=== PATIENT | female | born 1965 | race Caucasian/White ===

== ENCOUNTER 2020-12-16 15:27 | Outpatient (REF) | payer BC, SELFPAY ==
--- NOTE | ~2020-12-16 | MM_ITS ---
EXAMINATION: MM SCREENING DIGITAL BREAST TOMOSYNTHESIS, BILATERAL CLINICAL INFORMATION: Screening. Asymptomatic. The lifetime risk of breast cancer based on the Tyrer-Cuzick Model is 16%. COMPARISON: Mammography: 12/24/2019, 12/11/2019, 12/07/2018, 10/26/2013 TECHNIQUE: Digital breast tomosynthesis is performed in both the craniocaudal and mediolateral oblique views along with computer-aided detection (CAD). Synthesized 2D images are generated from the tomosynthesis. FINDINGS: There are scattered areas of fibroglandular density (ACR BI-RADS breast composition Category b). There are no significant masses, abnormal calcifications, or other abnormalities. There is no developing density. The axilla and skin contours are unremarkable. MM/MM tomosynthesis screening BI IMPRESSION: No mammographic evidence of malignancy. ASSESSMENT: BI-RADS 1: Negative RECOMMENDATION: Routine annual mammography screening. This patient's information was entered into a reminder system with a target due date for their next mammogram.
== END 2020-12-16 15:28 | disposition home or self-care (01) ==
LOC: HO.MAMMO 15:27
PROVIDERS: Visit Provider Obstetrics & Gynecology
DX: Z12.31 Encounter for screening mammogram for malignant neoplasm of breast (principal)
CPT/HCPCS: 77063; 77067

== ENCOUNTER 2021-10-02 07:49 | Outpatient (REF) | payer BC, SELFPAY ==
[2021-10-02 11:26] LABS: MANUAL DIFF FLAG NO
[2021-10-02 11:44] LABS: Basophils Percent Auto 0.7 % (0-2); Eosinophils Absolute Auto 0.1 X10*3/uL (0.0-0.4); Eosinophils Percent Auto 4.3 % (0-4); Hematocrit 40.5 % (37.0-47.0); Hemoglobin 13.4 g/dl (12.0-16.0); Imm Gran Abs Auto 0.03 X10*3/uL (0.00-0.03); Lymphocytes Absolute Auto 0.8 X10*3/uL (1.2-4.9); Lymphocytes Percent Auto 26.6 % (20-40); Mean Corpuscular HGB Conc 33.1 g/dl (31.0-35.0); Mean Corpuscular Hemoglobin 28.5 pg (27.0-33.0); Mean Corpuscular Volume 86.2 fL (80.0-98.0); Mean Platelet Volume 10.7 fL (9.4-12.3); Monocytes Absolute Auto 0.4 X10*3/uL (0.1-1.2); Monocytes Percent Auto 13.5 % (2-11); Neutrophils Absolute Auto 1.6 x10*3/uL (2.0-8.3); Neutrophils Percent Auto 53.9 % (45-73); Platelet Count 143 X10*3/uL (160-400); Red Cell Distribution Width 12.7 % (11.0-16.0)
[2021-10-02 12:05] LABS: Alanine Aminotransferase 34 U/L (0-31); Albumin Level 4.3 g/dL (3.5-5.0); Alkaline Phosphatase 86 U/L (39-117); Anion Gap 13 (12-20); Aspartate Amino Transferase 25 U/L (5-31); Bilirubin Total 0.8 mg/dL (0.0-1.0); Blood Urea Nitrogen 16 mg/dL (9-16); Carbon Dioxide 27 mmol/L (22-29); Chloride 105 mmol/L (96-108); Cholesterol 182 mg/dL; Estimated Glomerular Filt Rate > 60; Glucose Fasting 110 mg/dL (60-99); HDL Cholesterol 44 mg/dL; LDL Cholesterol Calculated 105 mg/dl; Potassium 4.2 mmol/L (3.3-5.1); Sodium 141 mmol/L (135-145); Total Protein 7.1 g/dL (6.5-8.0); Triglycerides 165 mg/dL
[2021-10-02 12:07] LABS: Thyroid Stimulating Hormone 1.43 uIU/mL (0.32-4.0); Vitamin D 25-OH Total 25.5 ng/mL (>30)
== END 2021-10-02 07:50 | disposition home or self-care (01) ==
LOC: HO.HMGCLDS 07:49
PROVIDERS: PCP Internal Medicine; Visit Provider Internal Medicine
DX: Z00.00 Encounter for general adult medical examination without abnormal findings (principal)
CPT/HCPCS: 36415; 80053; 80061; 82306; 84443; 85025

== ENCOUNTER 2022-07-05 15:56 | Outpatient (REF) | payer BC, SELFPAY ==
--- NOTE | ~2022-07-05 | MM_ITS ---
EXAMINATION: MM SCREENING DIGITAL BREAST TOMOSYNTHESIS, BILATERAL CLINICAL INFORMATION: Screening. Asymptomatic. The lifetime risk of breast cancer based on the Tyrer-Cuzick Model is 16%. COMPARISON: Multiple prior mammography, most recent 12/16/2020. TECHNIQUE: Digital breast tomosynthesis is performed in both the craniocaudal and mediolateral oblique views along with computer-aided detection (CAD). Synthesized 2D images are generated from the tomosynthesis. Additional left MLO view is provided. FINDINGS: There are scattered areas of fibroglandular density (ACR BI-RADS breast composition Category b). There are no significant masses, abnormal calcifications, or other abnormalities. Parenchymal pattern is similar to prior studies. There is no developing density or architectural abnormality. The axilla and skin contours are unremarkable. No significant changes. MM/MM tomosynthesis screening BI IMPRESSION: No mammographic evidence of malignancy. ASSESSMENT: BI-RADS 1: Negative RECOMMENDATION: Routine annual mammography screening. This patient's information was entered into a reminder system with a target due date for their next mammogram.
== END 2022-07-05 15:57 | disposition home or self-care (01) ==
LOC: HO.MAMMO 15:56
PROVIDERS: PCP Internal Medicine; Visit Provider Obstetrics & Gynecology
DX: Z12.31 Encounter for screening mammogram for malignant neoplasm of breast (principal)
CPT/HCPCS: 77063; 77067

== ENCOUNTER 2023-03-29 08:51 | Day surgery (SDC) | payer BC, SELFPAY ==
[2023-03-23 13:30] VITALS: BMI 42.2
--- NOTE | 2023-03-28 08:34 | HO.ANESPROP2 ---
Documented by User: Glory Milan NP 03/28/23 08:34 HPI - Anesthesia Eval Consult details Narrative: 58yo F for Colonoscopy [facility] Past Medical History Medical History Depression Anxiety HTN (hypertension) Surgical History Surgical History Hx of section Social History Patient Tobacco Use Status: Former Tobacco user Quit Date: 1989 Meds Allergies Allergy/AdvReac Type Severity Reaction Status Date / Time No Known Allergies Allergy Unverified 01/17/20 16:23 Home Medications Medication Instructions Recorded Confirmed Last Taken Type lisinopril 10 1 tab PO DAILY 03/23/23 03/23/23 Unknown History mg-hydrochlorothiazide 12.5 mg tablet sertraline 50 mg tablet 50 mg PO DAILY 03/23/23 03/23/23 Unknown History Exam Height,Weight and Vital Signs: Height 5 ft 3 in Weight 107.955 kg Assessment and Plan Assessment Anesthesia Assessment: Chart Reviewed Documented by User: Abi Garrido MD 03/29/23 09:58 [facility] Past Medical History Medical History Depression Anxiety HTN (hypertension) Surgical History Surgical History Hx of section History of Problems with Anesthesia: No Social History Patient Tobacco Use Status: Former Tobacco user Quit Date: 1989 Meds Allergies Allergy/AdvReac Type Severity Reaction Status Date / Time No Known Allergies Allergy Unverified 01/17/20 16:23 Home Medications Medication Instructions Recorded Confirmed Last Taken Type lisinopril 10 1 tab PO DAILY 03/23/23 03/23/23 Unknown History mg-hydrochlorothiazide 12.5 mg tablet sertraline 50 mg tablet 50 mg PO DAILY 03/23/23 03/23/23 Unknown History Exam Airway Mallampati Class: II TM Dist: >3cm Neck ROM: Full Loose/Missing/Broken Teeth: No Heart: RRR Lungs: CTA Assessment and Plan Assessment Anesthesia Assessment: Anesthesia Plan Discussed Final Anesthetic Review History of Problems with Anesthesia: No NPO: Yes ASA Class: III Final Preanesthetic Review: Meds/Allgs Chart Reviewed, Consent Obtained/Reviewed and Anes Risks/Benef Reviewed Patient Risk: Intermediate Procedure Risk: Low Anesthetic Plan Anesthetic Plan: MAC: Disposition: Standard PACU
[2023-03-29 09:28] VITALS: BMI 39.3
[2023-03-29 09:40] VITALS: BMI 39.3
[2023-03-29 09:41] VITALS: BP 152/90; PULSE 76; RESP 16; TEMP 37.1; O2SAT 94
[2023-03-29] MEDS: Lactated Ringers 1,000 ML 100 ML IVCONT (09:53)
--- NOTE | 2023-03-29 09:59 | P.HPSUR_ITS ---
Pre-Procedural Eval Section A Date of Service: 03/29/23 Section B Chief Complaint: Encounter for screening for malignant neoplasm of Details of Present Illness: see H&P no changes Relevant Family History (Specify if Yes): No Relevant Social History: None Present Medications: see Short Stay Collaborative assessment Medical History: No relevant PMH History of Previous Operations: No relevant previous surgery Allergies: Allergies Allergy/AdvReac Type Severity Reaction Status Date / Time No Known Allergies Allergy Unverified 01/17/20 16:23 Review of Systems Sugical H&P ROS: Negative: Constitution, Cardiovascular, Respiratory, Neuro logical, Psychiatric, Hem-Onc, Allergic/Immunologic, Gastrointestinal, Genitourinary, Musculoskeletal, Integumentary, Endocrine and Eyes/Ears/Nose/Throat Exam Surgical H&P Exam: Normal: HEENT, Normal: Heart, Normal: Lungs, Normal: Extremities, Normal: Abdomen, Normal: Skin and Normal: Neurological Plan Diagnosis/Plan: Unchanged I have reviewed the history and physical and performed a pertinent physical examination on my patient. No changes have occurred unless specified. Time Spent With Patient Time: Total time managing care of this patient today ____ minutes.
--- NOTE | 2023-03-29 10:28 | P.BOP_ITS ---
Brief Operative Note Date of Service: 03/29/23 Pre-op diagnosis: screening Post-op diagnosis: same Procedure: colonoscopy Surgeon: Drew Villatoro MD Anesthesia: MAC Was an Photo Print Specialist used for this Procedure?: No Estimated blood loss (mL): 2 Pathology: other Condition: stable Disposition: PACU
[2023-03-29 10:30] VITALS: BP 100/56; PULSE 71; RESP 16; TEMP 37; O2SAT 96
[2023-03-29 10:45] VITALS: BP 112/62; PULSE 72; RESP 16; O2SAT 96
--- NOTE | 2023-03-29 12:06 | OP_ITS ---
DATE OF SERVICE: 03/29/2023 SURGEON: Drew Villatoro MD INDICATIONS: Colon cancer screening. PREOPERATIVE DIAGNOSIS: POSTOPERATIVE DIAGNOSIS: PROCEDURE PERFORMED: Colonoscopy to the cecum with biopsy. ESTIMATED BLOOD LOSS: COMPLICATIONS: ANESTHESIA: Monitored anesthesia care. ASSISTANTS: SPECIMENS: DESCRIPTION OF PROCEDURE: A history and physical was performed. The risks and benefits of the procedure were explained to the patient. Informed consent was obtained. The patient was placed in the left lateral decubitus position. A digital rectal exam was performed and was found to be normal. The Olympus pediatric video colonoscope was introduced into the rectum and advanced to the cecum. The cecum was identified by transillumination, palpation, and identification of ileocecal valve. Examination was performed, and the scope was removed. She tolerated the procedure well and was returned to the recovery area in stable condition. FINDINGS: The terminal ileum was not examined. The visualized colonic mucosa was normal. The quality of the prep was good. There was a single polyp measuring less than 5 mm in the cecum near the appendiceal orifice, which was removed with biopsy forceps. No other polyps were identified. There was mild sigmoid diverticulosis. Retroflexed examination showed small internal hemorrhoids. IMPRESSION: Colon polyp. RECOMMENDATION: Follow up the biopsy results. MD ALFREDO Caba/VIRGILIOL / [id number]
== END 2023-03-29 11:21 | disposition home or self-care (01) ==
PROVIDERS: PCP Internal Medicine; Visit Provider Internal Medicine Gastroenterology
PROC: 0DJD8ZZ Inspection of Lower Intestinal Tract, Via Natural or Artificial Opening Endoscopic (ICD-10-PCS; CPT 45378; principal; 2023-03-29 10:20)
DX: Z12.11 Encounter for screening for malignant neoplasm of colon (principal); D12.0 Benign neoplasm of cecum; K57.30 Diverticulosis of large intestine without perforation or abscess without bleeding; K64.8 Other hemorrhoids; I10 Essential (primary) hypertension; F32.A Depression, unspecified; F51.9 Sleep disorder not due to a substance or known physiological condition, unspecified; Z79.899 Other long term (current) drug therapy
CPT/HCPCS: 45380; 88305; J2704

== ENCOUNTER 2023-07-11 15:35 | Outpatient (REF) | payer BC, SELFPAY | END 2023-07-11 15:36 | disposition home or self-care (01) | LOC: HO.MAMMO 15:35 | PROVIDERS: PCP Internal Medicine; Visit Provider Internal Medicine | DX: Z12.31 Encounter for screening mammogram for malignant neoplasm of breast (principal) | CPT/HCPCS: 77063; 77067 ==

== ENCOUNTER → 2023-07-11 16:00 | Outpatient (BNV) | payer BC, SELFPAY | PROVIDERS: PCP Internal Medicine; Visit Provider Radiology Diagnostic Radiology | DX: Z12.31 Encounter for screening mammogram for malignant neoplasm of breast (principal) | CPT/HCPCS: 77063; 77067 ==

== ENCOUNTER 2024-06-15 07:50 | Outpatient (REF) | payer BC, SELFPAY ==
--- OUTSIDE RECORDS SUMMARY | 2024-06-15 07:54 | XMS_ITS ---
Author Organization [facility] Address [address] [place] [id number] Care Team Providers Care Regulatory Process Manager Name Role Phone Phil Paulino MD Primary Care Provider UnavailDrew Reagan Jr REASON FOR VISIT pathology Encounters Encounter Location Date Provider Diagnosis [facility] [address] [place] [address] 04/07/2023 Drew Villatoro Jr PLAN OF TREATMENT No Information
--- OUTSIDE RECORDS SUMMARY | 2024-06-15 07:54 | XMS_ITS ---
Author Organization [facility] Address [address] [place] [address] Care Team Providers Care Forging Engineer Name Role Phone Phil Paulino MD Primary Care Provider Sendy Stone Unavailable [phone] Allergies No Known Allergies REASON FOR VISIT PCP: 06/2022, Ingrown nail, Skin problem(s) Medications Medication SIG (Take, Route, Frequency, Duration) Notes Start Date End Date Status Lisinopril 10 MG 1 tablet Orally Once a day for 30 day(s) Active Citalopram Hydrobromide 40 MG 0.5 tablet Orally Once a day for 30 day(s) Not-Taking Cephalexin 500 MG 1 capsule Orally david ry 12 hrs for 5 days Active Cephalexin 500 MG 1 capsule Orally david ry 12 hrs for 5 day(s) Not-Taking Zoloft Active Social History Tobacco Use: Social History Observation Description Date Details (start date - stop date) Former Smoker NA - 05/02/1990 Tobacco Use/Smoking Question Answer Notes Are you a: former smoker When did you stop smoking? 05/02/1990 Additional Findings: Tobacco Non-User Cu rrent non-smoker,Ex-heavy cigarette smoker (20-30/day) Alcohol Screen Question Answer Notes Did you have a drink contain ing alcohol in the past year? Yes How often did you have a dri nk containing alcohol in the past year? 2 to 3 times a week (3 points) How many drinks did you have on a typical day when you were drinking in the past year? 1 or 2 drinks (0 point) How often did you have 6 or more drinks on one occasion in the past year? Never (0 point) Points 3 Interpretation Positive Tobacco use other than smoking: Question Answer Notes Are you an other tobacco user? No Vital Signs Height 5ft 3in in 02/24/2023 Weight 200 lbs 02/24/2023 BMI 35.42 kg/m2 02/24/2023 Encounters Encounter Location Date Provider Diagnosis [facility] [address] [place] [address] 02/24/2023 Sendy Roper Ingrown nail L60.0 and Cellulitis of toe of right foot L03.031 Assessments Encounter Date Diagnosis (ICD Code) Assessment Notes Treatment Notes Treatment Clinical Notes Section Notes 02/24/2023 Ingrown nail (ICD-10 - L60.0) 02/24/2023 Cellulitis of toe of right foot (ICD-10 - L03.031) Plan Of Treatment Medication Medication Name Sig Start Date Stop Date Notes Cephalexin 500 MG 1 capsule Orally every 12 hrs for 5 days Next Appt Details Follow Up: 2-4 Weeks, Reason : Procedure Notes * Category Sub-Category Detail Notes Matricectomy (OP NOTE) Consent The patie nt was brought to the examination room and placed on the table in a supine position. The pre/marii/postoperative course, risks, complications and alternatives were discussed, understood and accepted by the patient. No guarantees were given regarding the surgical outcome Procedure A digital prep with alcohol or betadine was performed. 3cc of 1 percent Xylocaine Plain local anesthetic was administered to the toe via digital block utilizing aseptic technique. A digital touriquet was applied. The affected toenail portion was undermined, incised and resected to the eponychium and matrix. It was noted to be significantly incurvated and hypertrophied. The nailbed and matrix were curetted and the nail groove, bed and matrix were cauterized with Phenol, 3 applications of 30 seconds each from a cotton tip applicator, no underling bone was identified. Wound cleansed with alcohol. , The surrounding skin was protected from the Phenol with Bacitracin ointment. The tourniquet was released and capillary fill time was intact to the digit. A sterile Bacitracin dressing was applied Disposition Disposition: The pat ient tolerated the procedure and anesthesia well and left in good condition, alert, oriented and stable in no acute distress. Local wound care instructions were discussed and dispensed. There were no complications and the prognosis is favorable, Recommended alternating/staggering Tylenol XS 2 tabs and Motrin 600mg q 6 hrs ea for discomfort, Rx narcotic postop pain meds were deferred Location Lateral nail border, T5 Progress Notes * Myriam AGDOB:1964 (57 yo F)Acc No.[id number]:02/24/2023 Progress Note Patient:?Myriam Ag Provider:?Sendy Roper DPM :1965???Age:57 Y???Sex:Female D ate:02/24/2023 Address:[address] [place] [address], [facility] Pcp:Phil Paulino MD Subjective: * Chief Complaints: * ???PCP: 06/2022Nilsa Quiroga in problem(s) * HPI: ???Possible Infection:?Nature:?aching, swelling, throbbing, redness.?Location:?Great toe Right foot.?Course:?worse.?Aggrevated by:?any pressure.? * ROS:?General/Constitutional:?Nausea?denies.?Vomiting?denies.?Hunger Thirst?denies.?Loss appetite?denies.?Chills?denies.?Fatigue?denies.?Fever?denies.?Night Sweats?denies.?Unexplained weight loss?denies.?Unexplained weight gain?denies.?HEENTM:?Dentures?denies.?Dizziness?denies.?Glasses/contacts?admits.?Retinopathy?de nies.?Blurred/double vision?denies.?TMJ?denies.?Discharge/drainage?denies.?Implants?denies.?Sore throat?denies.?Dental implants?denies.?Hard of hearing ?admits.?Difficulty chewing/swallowing/speaking?denies.?Nose bleeds?denies.?Sore mouth?denies.?Respiratory:?On Oxygen?denies.?Pneumonia/pleurisy?denies.?Bronchitis?denies.?Emphysema?denies.?C oughing?denies.?Cough blood?denies.?Shortness of breath?denies.?Wheezing?admits.?Cardiovascular:?Pacemaker?denies.?MVP?denies.?WPW?denies.?CHF?denies.?Heart attack?denies.?Septal defect?admits.?Rapid beat?denies.?Chest pain ?denies.?Atrial Fib.?denies.?Murmur/Palpitations?denies.?Gastrointestinal:?Hemorrhoids?denies.?Stomach/Abdominal pain?denies.?Dark blood stool?denies.?Irritable bowel ?denies.?Constipation?denies.?Diarrhea?denies.?Hematology:?Swelling?denies.?Clots?denies.?Varicose Veins?denies.?Bruising?denies.?Bleeding problem?denies.?Genitourinary:?Blood urine?denies.?Frequent/Painfu/urination/bladder control?denies.?Kidney stones?denies.?Infection (UTI)?denies.?Nephropathy?denies.?sex trans dis (STD)?denies.?Prostate?denies.?Musculoskeletal:?Hammertoes?denies.?Bunions?denies.?Back Pain?denies.?Muscle Cramps/ Resting?denies.?Muscle cramps / walking?denies.?Generalized aches and pains?denies.?Weakness?denies.?Integ.:?Gonzáles?denies.?Scars?denies.?Corns/calluses?denies.?Ingrown nails?admits.?Painful nails?denies.?Open Sores?denies.?Rashes?denies.?Neurologic:?Difficulty sleeping?denies.?Brain disorder?denies.?Numbness?denies.?Balance trouble?denies.?Confusion?denies.?Fainting/blackouts?denies.?Tingling?denies.?Tr emors?denies.? * Medical History:? * Surgical History:? * Hospitalization/Major Diagno stic Procedure:?No Hospitalization History. * Family History:?Mother: dece ased.?Father: .? * Social History:?Tobacco Use:?Tobacco Use/Smoking?Are you a:?former smoker ?When did you stop smoking??05/02/1990 ?Additional Findings: Tobacco Non-User?Current non-smoker,Ex-heavy cigarette smoker (20-30/day) ?Tobacco use other than smoking?Are you an other tobacco user??No ???Drugs/Alcohol:?Drugs?Have you used drugs other than those for medical reasons in the past 12 months??No ?Alcohol Screen?Did you have a drink containing alcohol in the past year??Yes ?How often did you have a drink containing alcohol in the past year??2 to 3 times a week (3 points) ?How many drinks did you have on a typical day when you were drinking in the past year??1 or 2 drinks (0 point) ?How often did you have 6 or more drinks on one occasion in the past year??Never (0 point) ?Points?3 ?Interpretation?Positive ???Miscellaneous:?Caffeine: yes, frequency:, 1-2 cups per day. ?Children: yes. ?Exercise: yes, hiking, yoga. ?Marital status: . ?Occupation: [employer] * Medications:?TakingZoloft Li sinopril 10 MG Tablet 1 tablet Orally Once a dayTaking Zoloft Taking Lisinopril 10 MG Tablet 1 tablet Orally Once a dayNot-Taking/PRNCitalopram Hydrobromide 40 MG Tablet 0.5 tablet Orally Once a dayCephalexin 500 MG Capsule 1 capsule Orally every 12 hrsMedication List reviewed and reconciled with the patientNot-Taking/PRN Citalopram Hydrobromide 40 MG Tablet 0.5 tablet Orally Once a dayNot-Taking/PRN Cephalexin 500 MG Capsule 1 capsule Orally every 12 hrsMedication List reviewed and reconciled with the patient * Allergies:?N.K.D.A.yes[Aller gies Verified] Objective: * Vitals:?Ht: 5ft 3in, Wt:200, BMI:35.42, Shoe size: 9W, Ht-cm: 160.02 cm, Wt-k.72 kg. * Examination: ???Ingrown Nail: ?INSPECTION:?Reveals incurvation, pain on palpation, groove hypertrophy, Lateral nail border, There is evidence of surrounding periungual tissue erythema , Lateral nail border, T5.?Dermatologic: ?SKIN FINDINGS:?Skin shows sign(s) of, localized cellulitis without lymphangitis extending proximally to the level of the MPJ, T5.? Assessment: * Assessment: 1.?Ingrown nail - L60.0 (Lori diamond)?2.?Cellulitis of toe of right foot - L03.031, Acute problem, Stable (1=3)? Plan: * Treatment: * Procedures:?Matricectomy (OP NOTE):?Location?Lateral nail border, T5.?Consent?The patient was brought to the examination room and placed on the table in a supine position. The pre/marii/postoperative course, risks, complications and alternatives were discussed, understood and accepted by the patient. No guarantees were given regarding the surgical outcome.?Procedure?A digital prep with alcohol or betadine was performed. 3cc of 1 percent Xylocaine Plain local anesthetic was administered to the toe via digital block utilizing aseptic technique. A digital touriquet was applied. The affected toenail portion was undermined, incised and resected to the eponychium and matrix. It was noted to be significantly incurvated and hypertrophied. The nailbed and matrix were curetted and the nail groove, bed and matrix were cauterized with Phenol, 3 applications of 30 seconds each from a cotton tip applicator, no underling bone was identified. Wound cleansed with alcohol. , The surrounding skin was protected from the Phenol with Bacitracin ointment. The tourniquet was released and capillary fill time was intact to the digit. A sterile Bacitracin dressing was applied .?Disposition?Disposition: The patient tolerated the procedure and anesthesia well and left in good condition, alert, oriented and stable in no acute distress. Local wound care instructions were discussed and dispensed. There were no complications and the prognosis is favorable, Recommended alternating/staggering Tylenol XS 2 tabs and Motrin 600mg q 6 hrs ea for discomfort, Rx narcotic postop pain meds were deferred.? * Procedure Codes:?84123 REMOV AL OF NAIL BED * Preventive Medicine:? ??Counseling:?Discussion:?-13: Office or other outpatient visit for the evaluation and management of an established patient, which required a medically appropriate history and/or examination and LOW level of DECISION MAKING for: 1 STABLE ACUTE UNCOMPLICATED PROBLEM, 2 OR MORE MINOR PROBLEMS, OR 1 STABLE CHRONIC PROBLEM, THAT POSE(S) A LOW RISK FOR MORBIDITY/MORTALITY. The visit on the day of the encounter encompassed interpreting the data and educating the patient as to the nature of their condition, treatment options available according to their individual PMH, meds, allergies, and overall health/living conditions, as well as any potential risks or complications that may occur from a failure to adhere to, and participate in, the recommended course of therapy. The discussion included a complete verbal, and/or written explanation of the examination results, any x-rays taken, the proposed diagnosis, and outline of the treatment plan. A schedule for future care needs was also explained. The patient verbalized an understanding of the instructions at this time and agreed to be an active participant in their treatment. If the patient should think of any questions or concerns after the visit, I have encouraged the patient to call the office.?Abscess/Paraonychia/Ingrown Nails:?We discussed the possible etiologies (genetic, improper nailcare, shoegear, nail trauma) which may lead to ingrown nails and/or paronychial infections. We discussed and reviewed palliative/nonsurgical/deferring definitive treatment (vs) undergoing the treatment procedures of nail avulsion(s) or PNA, which may prevent recurrence and give more lasting results. The possible risks/complications such as worsened condition/delayed healing/nonhealing/failure/recurrence/infection, the potential benefits/advantages of decreased pain/deformity, as well as alterative treatment options including applying nail softening agents/nailgroove packing were discussed. No guarantees were given regarding any outcome for any procedure. The patient was educated in the length of time for the affected nail to regrow once completely healed from a nail avulsion procedure. Once the condition has completely healed, the patient was consulted on proper nailcare. Patient questions such as details of each procedure, varying time to heal, activity post procedure, and shoegear were discussed and the answers were verbally confirmed fully understood.?Cellulitis/Lymphangitis?The Pt. was counseled on the diagnosis, etiology, treatment options, and importance for adherence to recommendations regarding the treatment for Cellulitis. Abx were Rxed to address the cellulitis. The advantages and disadvantages of an antibiotic medication, along with its side effects, were discussed with the patient to their comprehended satisfaction. Patient questions re: use, dosage, and possible pharmacutical interactions were reviewed and the answers clearly understood. If the condition should worsen while taking the antibiotics as directed, it was recommeded that the patient call the office immediately or seek emergency medical care. The patient verbally confirmed a full understanding of the above information.? * Follow Up:?2-4 Weeks * Images: * Sign off status: Completed true * Provider:?Sendy Roper DPM Date:? Generated for Nain robles/Elissa/Nimesh on:?06/15/2024 07:54 AM EST History and Physical Notes * HPI (History of Present Illness) Category Sub-Category Detail Notes Category Not es Possible Infection Location: Great toe Right foot Nature: aching, swelling, th robbing, redness Course: worse Aggravated by: any pressure Examination Category Sub-Category Detail Notes Category Not es Ingrown Nail INSPECTION: Reveals incurvat ion, pain on palpation, groove hypertrophy, Lateral nail border, There is evidence of surrounding periungual tissue erythema , Lateral nail border, T5 Dermatologic SKIN FINDINGS: Skin shows sign( s) of, localized cellulitis without lymphangitis extending proximally to the level of the MPJ, T5
--- OUTSIDE RECORDS SUMMARY | 2024-06-15 07:54 | XMS_ITS | Patient Health Record ---
Author Organization [facility] Address [address] [place] [address] Care Team Providers Care Oil Change Technician Name Role Phone Phil Paulino MD Primary Care Provider Drew Bravo Jr Unavailable ALLERGIES No Known Allergies REASON FOR REFERRAL No Information MEDICATIONS Medication SIG (Take, Route, Frequency, Duration) Notes Start Date End Date Status MiraLax (colon prep) 17 GM/SCOOP mixed with Gatorade or Crystal Light Orally begin at 5:00 p.m. the day before the procedure for 1 day 02/17/2023 Active Zoloft 50 MG 1 tablet Orally Once a day for 30 day(s) Active Lisinopril-hydroCHLOROthia zide 10-12.5 MG TAKE 1 TABLET BY MOUTH EVERY DAY Oral for 90 Active Vitamin D Active SOCIAL HISTORY Tobacco Use: Social History Observation Description Date Details (start date - stop date) Never Smoker NA - NA Sex Assigned At : Social History Observation Description Sex Assigned At Unknown Tobacco Use/Smoking Question Answer Notes Patient is a nonsmoker Alcohol Screen Question Answer Notes Did you have a drink contain ing alcohol in the past year? Yes How often did you have a dri nk containing alcohol in the past year? Monthly or less (1 point) How many drinks did you have on a typical day when you were drinking in the past year? 1 or 2 drinks (0 point) How often did you have 6 or more drinks on one occasion in the past year? Never (0 point) Points 1 Interpretation Negative PROBLEMS Problem Type ICD Code Onset Dates Problem Status W/U Status Risk SNOMED Code Notes Problem Colon cancer screening (Z12.11) Active confirmed 223156136 Problem Encounter for other preprocedural examination (Z01.818) Active confirmed 913201742 PLAN OF TREATMENT Future Test Test Name Order Date COLONOSCOPY 02/17/2023 Insurance Providers Payer Name Payer Address Payer Phone Subscriber Number Group Number Insured Name Patient Relationship to Insured Coverage Start Date Coverage End Date [facility] [address] [place] [address] [phone] [id number] KIM JACOB Self - patient is the insured MEDICAL (GENERAL) HISTORY Medical History History ICD Code Hypertension Anxiety/depression Surgical History Surgery Date(Month/Year) section 1997
--- OUTSIDE RECORDS SUMMARY | 2024-06-15 07:54 | XMS_ITS | Patient Health Record ---
Author Organization [facility] Address [address] [facility] [place] [address] Care Team Providers Care Qa Engineer Name Role Phone Phil Paulino MD Primary Care Provider Sendy Stone Unavailable [phone] Allergies No Known Allergies Reason For Referral No Information Medications Medication SIG (Take, Route, Frequency, Duration) Notes Start Date End Date Status Cephalexin 500 MG 1 capsule Orally david ry 12 hrs for 5 day(s) Not-Taking Cephalexin 500 MG 1 capsule Orally david ry 12 hrs for 5 days Not-Taking Citalopram Hydrobromide 40 MG 0.5 tablet Orally Once a day for 30 day(s) Not-Taking Zoloft Active Lisinopril 10 MG 1 tablet Orally Once a day for 30 day(s) Active Social History Tobacco Use: Social History [...] Are you an other tobacco user? No Plan Of Treatment No Information Insurance Providers Payer Name Payer Address Payer Phone Subscriber Number Group Number Insured Name Patient Relationship to Insured Coverage Start Date Coverage End Date [facility] [id number] [place] [address] [id number] Myriam Currie i Self - patient is the insured Medical (General) History Medical History History ICD Code Anxiety Depression Chicken pox Surgical History Surgery Date(Month/Year)
--- OUTSIDE RECORDS SUMMARY | 2024-06-15 07:55 | XMS_ITS ---
Author Organization [facility] Address [address] [place] [address] Care Team Providers Care Head Of Physics Name Role Phone Phil Paulino MD Primary Care Provider Drew Bravo Jr [phone] REASON FOR VISIT screening Encounters Encounter Location Date Provider Diagnosis [facility] Out[facility] [address] [place] [phone] 03/29/2023 Drew Villatoro Jr Encounter for screening colonoscopy Z12.11 and Colon polyps K63.5 ASSESSMENTS Encounter Date Diagnosis Assessment Notes Treatment Notes Treatment Clinical Notes 03/29/2023 Encounter for screening colonoscopy (ICD-10 - Z12.11) 03/29/2023 Colon polyps (ICD-10 - K63.5) PLAN OF TREATMENT No Information
--- OUTSIDE RECORDS SUMMARY | 2024-06-15 07:55 | XMS_ITS ---
Author Organization [facility] Address [address] [facility] [place] [address] Care Team Providers Care Bacteriologist Food Name Role Phone Phil Paulino MD Primary Care Provider Sendy Stone Unavailable [phone] Allergies No Known Allergies REASON FOR VISIT pt states last pcp visit 06/2022, Open sore - Toe Medications Medication SIG (Take, Route, Frequency, Duration) [...] No Vital Signs Height 5ft 3in in 03/21/2023 Weight 200 lbs 03/21/2023 BMI 35.42 kg/m2 03/21/2023 Encounters Encounter Location Date Provider Diagnosis [facility] [address] [address] 03/21/2023 Sendy Perica Skin ulcer of toe of right foot with fat layer exposed L97.512 and Cellulitis of right toe L03.031 Assessments Encounter Date Diagnosis (ICD Code) Assessment Notes Treatment Notes Treatment Clinical Notes Section Notes 03/21/2023 Skin ulcer of toe of right foot with fat layer exposed (ICD-10 - L97.512) Patient Educated with: WOUND CARE INSTRUCTIONS.p df (WOUND CARE INSTRUCTIONS.p df) 03/21/2023 Cellulitis of right toe (ICD-10 - L03.031) 03/21/2023 Other Plan Of Treatment Treatment Notes Assessment Notes Skin ulcer of toe of right f oot with fat layer exposed Patient Educated with: WOUND CARE INSTRUCTIONS.pdf (WOUND CARE INSTRUCTIONS.pdf) Next Appt Details Follow Up: prn, Reason: Procedure Notes * Category Sub-Category Detail Notes Debride skin and subQ Open wound Physician of record performed open wound selective debridement of devitalized necrotic/nonviable soft tissue, fibrin, exudate, epidermis, dermis, thru skin and subcutaneous fat tissue, first 20 sq cm or less, using sharp dissection with sterile 15 blade, and/or tissue nippers. ANESTHESIA- was DEFERRED, Pt tolerate to pain, Sterile antibiotic dressing applied. Hemostasis was controlled through direct pressure. Post debridement measurements: 4 mm x 2 mm x 3 mm. Character of the wound post debriement is stable (35495) , The patient was instructed on importance of proper wound care consisting of pressure reduction, maintainance of moist wound environment, and regular debridement of devitilized tissue , The patient is to cleanse the wound with warm soapy water/peroxide/saline or betadine BID based on product availability , The patient is to apply Antibiotic Oint. to the wound and cover with a DSD , The patient was instructed to change dressings according to orders or PRN saturation, leaks , The patient was instructed to monitor and report any signs or symptoms of infection or any untoward reactions , The patient is to cont the local wound care as directed Progress Notes * Myriam AG JDOB:1964 (58 yo F)Acc No.[id number]:03/21/2023 Progress Notes Patient:Myriam Bishop Provider:?Sendy Roper DPM :1965???Age:58 Y???Sex:Female D ate:03/21/2023 Address:[address] [place], [place] [id number] Pcp:Phil Paulino MD Subjective: * Chief Complaints: * ???Pt states last pcp visit 06/2022Open sore - Toe * HPI: ???Possible Infection:?Nature:?aching, swelling, throbbing, redness.?Location:?Great toe Right foot.?Course:?resolved.?Aggrevated by:?any pressure.?Treatments:?medication ( Keflex).? * ROS:?General/Constitutional:?Nausea?denies.?Vomiting?denies.?Hunger Thirst?denies.?Loss appetite?denies.?Chills?denies.?Fatigue?denies.?Fever?denies.?Night Sweats?denies.?Unexplained weight loss?denies.?Unexplained [...] MG Tablet 1 tablet Orally Once a dayNot-Taking/PRNCephalexin 500 MG Capsule 1 capsule Orally every 12 hrsCitalopram Hydrobromide 40 MG Tablet 0.5 tablet Orally Once a dayCephalexin 500 MG Capsule 1 capsule Orally every 12 hrsMedication List reviewed and reconciled with the patientNot-Taking/PRN Cephalexin 500 MG Capsule 1 capsule Orally every 12 hrsNot-Taking/PRN Citalopram Hydrobromide 40 MG Tablet 0.5 tablet Orally Once a dayNot-Taking/PRN Cephalexin 500 MG Capsule 1 capsule Orally every 12 hrsMedication List reviewed and reconciled with the patient * Allergies:?N.K.D.A.yes[Aller gies Verified] Objective: * Vitals:?Ht: 5ft 3in, Wt: 200 , BMI:35.42, Shoe size: 9w. * Examination: ???Dermatologic: ?SKIN FINDINGS:?Skin exam reveals normal color, texture, elasticity, and turgor. There are no masses, nor excrescences. The interspaces are clear, B/L.?ULCER:? LOCATION, lateral T5, SIZE, 4 mm X 2 mm X 3mm, BASE, fibro- granular, RIM, hyperkeratotic, UNDERMINING, mild, TRACKING, Sub Q with Fat layer exposed, DRAINAGE, serosanguineous, moderate, NECROTIC TISSUE, loosely-adherent, yellow slough, MALODOR, absent, CALOR, absent, ERYTHEMA, absent.? Assessment: * Assessment: 1.?Cellulitis of right toe - L03.031 (Primary), Minor problem, Self-limited (1=2,2=3)?2.?Skin ulcer of toe of right foot with fat layer exposed - L97.512, Response to treatment? Plan: * Treatment: * Procedures:?Debride skin and subQ:?Open wound?Physician of record performed open wound selective debridement of devitalized necrotic/nonviable soft tissue, fibrin, exudate, epidermis, dermis, thru skin and subcutaneous fat tissue, first 20 sq cm or less, using sharp dissection with sterile 15 blade, and/or tissue nippers. ANESTHESIA- was DEFERRED, Pt tolerate to pain, Sterile antibiotic dressing applied. Hemostasis was controlled through direct pressure. Post debridement measurements: 4 mm x 2 mm x 3 mm. Character of the wound post debriement is stable (89397) , The patient was instructed on importance of proper wound care consisting of pressure reduction, maintainance of moist wound environment, and regular debridement of devitilized tissue , The patient is to cleanse the wound with warm soapy water/peroxide/saline or betadine BID based on product availability , The patient is to apply Antibiotic Oint. to the wound and cover with a DSD , The patient was instructed to change dressings according to orders or PRN saturation, leaks , The patient was instructed to monitor and report any signs or symptoms of infection or any untoward reactions , The patient is to cont the local wound care as directed.? * Procedure Codes:?46734 DEBRI DE SKIN/TISSUE, Modifiers: XS * Preventive Medicine:? ??Counseling:?Discussion:?-12: Office or other outpatient visit for the evaluation and management of an established patient, which required a medically appropriate history and/or examination and STRAIGHTFORWARD level of MEDICAL DECISION MAKING, 1 SELF-LIMITED OR MINOR PROBLEM, MINIMAL- NO AMOUNT/COMPLEXITY OF DATA TO BE REVIEWED/ANALYZED, AND MINIMAL RISK OF COMPLICATION/MORBIDITY. The visit on the day of the [...] have encouraged the patient to call the office, Given recent successful results to treatment, The patient wishes to continue with the present treatment plan for their condition.?Ulcer:?Plan Of Care reviewed with the Pt, The patient was instructed on importance of proper wound care consisting of pressure reduction, maintainance of moist wound environment, The patient is to cleanse the wound with warm soapy water/peroxide/saline or betadine BID based on product availability , The patient is to apply Antibiotic Oint. to the wound and cover with a DSD , The patient was instructed to change dressings according to orders or PRN saturation, leaks, The patient was instructed to monitor and report any signs or symptoms of infection or any untoward reactions, Precautions Taken, Offloading/Pressure reduction via rest, cane, crutches, or knee scooter, Limited activity, Sharp debridement, Shoe modification, Padding, Topical medication as directed, Debridement frequency as indicated.? * Follow Up:?prn * Images: * Sign off status: Completed true * Provider:Poonam Roper DPM Date:? Generated for Nain robles/Elissa/Nimesh on:?06/15/2024 07:54 AM EST History and Physical Notes * HPI (History of Present Illness) Category Sub-Category Detail Notes Category Not es Possible Infection Location: Great toe Right foot Nature: aching, swelling, th robbing, redness Course: resolved Aggravated by: any pressure Treatments: medication ( Keflex) Examination Category Sub-Category Detail Notes Category Not es Dermatologic SKIN FINDINGS: Skin exam reveal s normal color, texture, elasticity, and turgor. There are no masses, nor excrescences. The interspaces are clear, B/L ULCER: LOCATION, lateral T5 , SIZE, 4 mm X 2 mm X 3mm, BASE, fibro-granular, RIM, hyperkeratotic, UNDERMINING, mild, TRACKING, Sub Q with Fat layer exposed, DRAINAGE, serosanguineous, moderate, NECROTIC TISSUE, loosely-adherent, yellow slough, MALODOR, absent, CALOR, absent, ERYTHEMA, absent
[2024-06-15 10:15] LABS: MANUAL DIFF FLAG NO
[2024-06-15 10:23] LABS: Basophils Percent Auto 0.9 % (0-2); Eosinophils Absolute Auto 0.2 X10*3/uL (0.0-0.4); Eosinophils Percent Auto 3.4 % (0-4); Hematocrit 40.1 % (37.0-47.0); Hemoglobin 13.4 g/dl (12.0-16.0); Imm Gran Abs Auto 0.03 X10*3/uL (0.00-0.03); Imm Gran Pct Auto 0.7 % (0.0-0.4); Lymphocytes Absolute Auto 1.2 X10*3/uL (1.2-4.9); Lymphocytes Percent Auto 27.8 % (20-40); Mean Corpuscular HGB Conc 33.4 g/dl (31.0-35.0); Mean Corpuscular Hemoglobin 29.3 pg (27.0-33.0); Mean Corpuscular Volume 87.6 fL (80.0-98.0); Mean Platelet Volume 10.5 fL (9.4-12.3); Monocytes Absolute Auto 0.5 X10*3/uL (0.1-1.2); Monocytes Percent Auto 10.3 % (2-11); Neutrophils Absolute Auto 2.5 x10*3/uL (2.0-8.3); Neutrophils Percent Auto 56.9 % (45-73); Platelet Count 165 X10*3/uL (160-400); Red Blood Count 4.58 X10*6/uL (4.20-5.50); Red Cell Distribution Width 13.2 % (11.0-16.0); White Blood Count 4.4 X10*3/uL (4.8-10.8)
[2024-06-15 11:14] LABS: Alanine Aminotransferase 35 U/L (0-31); Albumin Level 3.9 g/dL (3.5-5.0); Alkaline Phosphatase 59 U/L (39-117); Anion Gap 12 (12-20); Aspartate Amino Transferase 27 U/L (5-31); Bilirubin Total 0.5 mg/dL (0.0-1.0); Blood Urea Nitrogen 28 mg/dL (9-16); Calcium 9.3 mg/dL (8.4-10.2); Carbon Dioxide 28 mmol/L (22-29); Chloride 105 mmol/L (96-108); Cholesterol 199 mg/dL (<200); Estimated Glomerular Filt Rate > 60; Glucose Fasting 117 mg/dL (60-99); HDL Cholesterol 50 mg/dL (>40); LDL Cholesterol Calculated 113 mg/dL (<100); Potassium 3.7 mmol/L (3.3-5.1); Sodium 141 mmol/L (135-145); Total Protein 6.2 g/dL (6.5-8.0); Triglycerides 180 mg/dL (<150)
[2024-06-15 11:32] LABS: Free T4 (Free Thyroxine) 0.98 ng/dL (0.71-1.85); Thyroid Stimulating Hormone 1.61 uIU/mL (0.32-4.0)
== END 2024-06-15 07:51 | disposition home or self-care (01) ==
LOC: HO.10HDL 07:50
PROVIDERS: Visit Provider Internal Medicine
DX: I10 Essential (primary) hypertension (principal); R60.0 Localized edema
CPT/HCPCS: 36415; 80053; 80061; 84439; 84443; 85025

== ENCOUNTER 2024-08-08 14:30 | Outpatient (AMB) | payer BC, SELFPAY ==
--- NOTE | 2024-08-08 14:32 | MHC.PC.OV ---
Vital Signs 08/08/24 14:34 Height 5 ft 3 in Weight 225 lb BMI 39.9 BP 120/80 Blood Pressure Location Lt brachial Position Sitting Pulse 68 Temp 98 F Temp Source Axillary Pulse Oximetry (%) 98 Oxygen Delivery Method Room Air Intake Visit Reasons: Routine Rubber Off Required: No Accompanied by: Self / Same As Patient Allergies No Known Allergies Allergy (Unverified 08/08/24 15:25) Medication List - Last Reconciled 08/08/24 by Harsha Brandt MD lisinopril-hydrochlorothiazide 20-25 mg 1 tab PO DAILY sertraline 50 mg PO DAILY Tobacco use date assessed: 08/08/24 Dental Screening Dental Screen Date: 08/08/24 Did you have a dental visit in the last 12 months?: No Did you have a dental problem in the last 6 months where you did not have access to dental care?: No [facility] Medical History (Updated 08/08/24 @ 15:28 by Harsha Brandt MD) Depression Anxiety HTN (hypertension) Surgical History Hx of section Family History Mother Lung cancer Father Emphysema (subcutaneous) (surgical) resulting from a procedure Social History Housing: House Patient Tobacco Use Status: Former Tobacco user e-Cigarette/Vaping Use: Former Use service: No Current occupational status: employed Cognitive needs: No Hearing needs: No Vision needs: Yes (rx glasses) Questionnaire PHQ-9 Over the last 2 weeks, how often have you been bothered by any of the following problems? 1. Little interest or pleasure in doing things: not at all 2. Feeling down, depressed, or hopeless: not at all 3. Trouble falling or staying asleep, or sleeping too much: not at all 4. Feeling tired or having little energy: not at all 5. Poor appetite or overeating: nearly every day 6. Feeling bad about yourself - or that you are a failure or have let yourself or your family down: not at all 7. Trouble concentrating on things, such as reading the newspaper or watching television: not at all 8. Moving or speaking so slowly that other people could have noticed. Or the opposite - being so fidgety or restless that you have been moving around a lot more than usual: not at all 9. Thoughts that you would be better off or of hurting yourself in some way: not at all Total score: 3 Source: Developed by Drs. Adi Mora, Rasheeda Vasquez, Lemuel Cheng and colleagues, with an educational isaac from [employer]. Thrive Questionnaire Date Thrive assessed: 08/08/24 I am a: Patient Within the past 12 months, did the food you bought not last and you didn't have the money to get more?: Never true Within the past 12 months, did you worry whether your food would run out before you got money to buy more?: Never true Do you have trouble paying for medicines?: No Do you have trouble paying your heating and electricity bill?: No Do you have trouble taking care of your child, family member or friend?: No Do you have trouble with day-to-day activities such as bathing, preparing meals, shopping, managing finances, etc.?: No Are you currently unemployed and looking for a job?: No Are you interested in more education?: No THRIVE Score: 0 AUDIT C Alcohol Use Questionnaire (AUDIT-C) 1. How often do you have a drink containing alcohol?: Monthly or less 2. How many drinks containing alcohol do you have on a typical day when you are drinking?: 1 or 2 3. How often do you have six or more drinks on one occasion?: Less than monthly Total Score: 2 CECILLE-7 AMB Questionnaire CECILLE-7 Date CECILLE - 7 assessed: 08/08/24 Feeling nervous, anxious, or on edge: 0 = Not at all Not being able to stop or control worryin = Not at all Worrying too much about different things: 0 = Not at all Trouble relaxin = Not at all Being so restless that it is hard to sit still: 0 = Not at all Becoming easily annoyed or irritable: 0 = Not at all Feeling afraid as if something awful might happen: 0 = Not at all Total CECILLE-7 score (0-4 normal; 5-9 mild; 10-14 moderate; 15-21 severe): 0 Source: Developed by Drs. Adi Mora, Rasheeda Vasquez, Lemuel Cheng and colleagues, with an educational isaac from [employer]. Physical exam (Primary Care) Vital Signs: Last Vital Signs Temp 98 F 08/08/24 14:34 Pulse 68 08/08/24 14:34 BP 120/80 08/08/24 14:34 Pulse Ox 98 08/08/24 14:34 Oxygen Delivery Method Room Air 08/08/24 14:34 BMI result Body Mass Index 39.9 Tobacco/Smoking Status: Tobacco use Status Tobacco use date assessed 08/08/24 08/08/24 14:36 Patient Tobacco Use Status Former Tobacco user 08/08/24 14:36 e-Cigarette/Vaping Use Former Use 08/08/24 15:07 PHQ-9: PHQ-9 Score PHQ-9: Total score 3 08/08/24 15:07 Thrive Assessment: Date of Thrive Assessment Date Thrive assessed 08/08/24 08/08/24 14:36 Coding Level of Care Code New Pt Level 4 (02405) Complex EM visit Add On G2211 Diagnoses HTN (hypertension) I10 Depression F32.A Assessment & Plan Assessment & Plan (1) HTN (hypertension): Code(s): I10 - Essential (primary) hypertension Category: Medical Plan: BP in range. Continue current medications. (2) Depression: Code(s): F32.A - Depression, unspecified Category: Medical Plan: Depression sx are well controlled. Plan History of Present Illness The patient is a 59-year-old female presenting for a routine wellness visit and follow-up regarding her chronic conditions, namely essential hypertension and major depressive disorder. She has a history of hearing loss and utilizes hearing aids, a condition that began in 1985. Additionally, she reports a previous polypectomy performed approximately one year ago during a screening colonoscopy, where one polyp was removed without complications. She notes no current health complaints and confirms that previous blood work, performed in June, yielded acceptable results. Essential hypertension has been managed with lisinopril, and the patient confirms adequate control without any adverse events reported since the initiation of treatment. Her major depressive disorder is managed with sertraline, which she reports to have stabilized her symptoms effectively. She denies any new or exacerbated symptoms related to her chronic conditions. Moreover, she is scheduled to undergo a mammogram toward the end of this month, and she has no immediate need for prescription refills, although she understands the process should refills become necessary. Social History - Employment: Works at the [employer] in [place]; full-time position for 36 years. - Family: Lives with her daughter; son is involved in her care. - Incident: Had a backyard accident in June resulting in a hand injury. - Hearing: Utilizes hearing aids; has done so since 1985. Review of Systems - Head/Ears: Reports use of hearing aids, no current issues. - Cardiovascular: Denies chest pain, palpitations. - Respiratory: Denies shortness of breath, cough. - Gastrointestinal: Denies abdominal pain, recent changes in bowel habits post-polypectomy. - Musculoskeletal: Reports past hand fracture, currently asymptomatic. - Neurological: Denies headaches, dizziness. - Psychological: Denies depression, anxiety, currently stable on sertraline. Physical Exam General: Cooperative and healthy appearing Nutritional Appearance: Well nourished Orientation/consciousness: Patient oriented x3 Limitations: No limitations Head: Normal to inspection General: Appearance normal, both eyes and all related structures Neck: Normal visual inspection Chest: Normal palpation of entire chest wall Respiratory: Patient wears hearing aids, breath sounds normal. ormal respiratory effort Neurology: Patient oriented x3 Results - Tests: Previous colonoscopy (approximately one year prior) showed one polyp removed. Plan The patient continues lisinopril and sertraline, effectively managing her hypertension and depression. A follow-up mammogram is scheduled later this month. Annual wellness visits will continue, and she should contact the pharmacy to facilitate any prescription refills as needed. A six-month follow-up was planned for ongoing health maintenance and chronic disease monitoring. Patient was informed and verbally consented to the use of an ambient scribe for clinic note documentation during this visit. Discussion Notes I discussed with the patient the importance of ongoing management of her hypertension and depression, emphasizing adherence to her current medication regimen. We reviewed the recent history of her colonoscopy and corroborated that her polypectomy did not reveal additional concerns. The patient was informed about the significance of the upcoming mammogram as part of her preventative health screening. Furthermore, we agreed on a six-month follow-up for her ongoing healthcare management, during which we will reassess her medication needs and overall health status. Patient Instructions - Continue current medications: lisinopril and sertraline. - Attend scheduled mammogram later this month. - Monitor blood pressure regularly. - Contact pharmacy for prescription refills as needed. - Follow up in six months for routine wellness care. - Seek medical attention for any new or worsening symptoms.
[2024-08-08 14:34] VITALS: BP 120/80; PULSE 68; TEMP 36.6; O2SAT 98; BMI 39.9
--- OUTSIDE RECORDS SUMMARY | 2024-08-08 16:44 | XMS_ITS ---
Author Organization [facility] Address [address] [facility] [place] [address] Care Team Providers Care Cytometry Technologist Name Role Phone Phil Paulino MD Primary Care Provider Sendy Stone Unavailable [phone] Allergies No Known Allergies REASON FOR VISIT [...] 02/24/2023 Encounters Encounter Location Date Provider Diagnosis [facility] [address] [place] [address] 02/24/2023 Sendy Roper Ingrown nail L60.0 and [...] Notes * Myriam AGDOB:1964 (57 yo F)Acc No.[id number]:02/24/2023 Progress Note Patient:?Myriam Ag Provider:?Sendy Roper DPM :1965???Age:57 Y???Sex:Female D ate:02/24/2023 Address:[address] [place] [address], [facility] Pcp:Phil Paulino MD Subjective: * Chief Complaints: [...] postop pain meds were deferred.? * Procedure Codes:?88055 REMOV AL OF NAIL BED * Preventive [...] Roper DPM Date:? Generated for Nain robles/Elissa/Nimesh on:?08/08/2024 04:43 PM EDT History and Physical Notes * HPI (History [...]
--- OUTSIDE RECORDS SUMMARY | 2024-08-08 16:44 | XMS_ITS ---
Author Organization [facility] Address [address] [place] [address] Care Team Providers Care Weigh Boss Name Role Phone Phil Paulino MD Primary Care Provider Drew Bravo Jr REASON FOR VISIT pathology Encounters Encounter Location Date Provider Diagnosis [facility] [address] [place] [address] 04/07/2023 Drew Villatoro Jr Plan Of Treatment No Information Progress Notes * BRENNA JACOBKARINADOB:[birth year] (58 yo F)Acc No.[id number]:04/07/2023 Patient:?KIM JACOB :1965???Age:58 Y???Sex:Female Address:[address] [place], [address] * true * Date:? Generated for Nain robles/Elissa/eTransmitting on:?08/08/2024 04:43 PM EDT
== END 2024-08-08 15:24 | disposition home or self-care (01) ==
PROVIDERS: PCP Internal Medicine; Visit Provider Internal Medicine
DX: I10 Essential (primary) hypertension (principal); F32.A Depression, unspecified

== ENCOUNTER → 2024-08-08 14:30 | Outpatient (BNVA) | payer BC, SELFPAY | PROVIDERS: PCP Internal Medicine; Visit Provider Internal Medicine ==

== ENCOUNTER 2024-08-24 15:54 | Outpatient (REF) | payer BC, SELFPAY ==
--- OUTSIDE RECORDS SUMMARY | 2024-08-24 16:12 | XMS_ITS | Patient Health Record ---
[facility] Organization [facility] Address [address] [place] [address] Care Team Providers Care Hand Scraper Name Role Phone Phil Paulino MD Primary Care Provider Sendy Stone Unavailable [phone] Allergies No Known Allergies Reason For Referral [...] Insured Coverage Start Date Coverage End Date [facility] [id number] [place] [address] [phone] [id number] Myriam Currie i Self - patient is the insured Medical (General) History Medical History History ICD Code Anxiety Depression Chicken pox Surgical History Surgery Date(Month/Year)
--- OUTSIDE RECORDS SUMMARY | 2024-08-24 16:12 | XMS_ITS ---
Author Organization [facility] Address [address] [facility] [address] [facility] [place] [address] Care Team Providers Care Group Chief Operator Name Role Phone Phil Paulino MD Primary Care Provider Sendy Stone Unavailable [phone] Allergies No Known Allergies REASON FOR VISIT [...] 03/21/2023 Encounters Encounter Location Date Provider Diagnosis [facility] [address] [address] 03/21/2023 Sendy Perica Skin ulcer of toe [...] of the wound post debriement is stable (78482) , The patient was instructed on importance [...] * Myriam AG JDOB:1964 (58 yo F)Acc No.[id number]:03/21/2023 Progress Notes Patient:Myriam Bishop Provider:?Sendy Roper DPM :1965???Age:58 Y???Sex:Female D ate:03/21/2023 Address:[address] [place], [place] [id number] Pcp:Phil Paulino MD Subjective: * Chief Complaints: [...] of the wound post debriement is stable (69679) , The patient was instructed on importance [...] local wound care as directed.? * Procedure Codes:?82274 DEBRI DE SKIN/TISSUE, Modifiers: XS * Preventive [...] Sign off status: Completed true * Provider:Poonam Roper, BALDO Date:? Generated for Nain robles/Elissa/Nimesh on:?08/24/2024 04:12 PM EDT History and Physical Notes * [...]
--- OUTSIDE RECORDS SUMMARY | 2024-08-24 16:12 | XMS_ITS ---
Author Organization [facility] Address [address] [facility] [facility] [place] [address] Care Team Providers Care Business Consultant Name Role Phone Phil Paulino MD Primary Care Provider Sendy Stone Unavailable [phone] Allergies No Known Allergies REASON FOR VISIT [...] 02/24/2023 Encounters Encounter Location Date Provider Diagnosis [facility] [address] [place] [address] 02/24/2023 Sendy Roper Ingrown nail L60.0 and [...] Notes * Myriam AGDOB:1964 (57 yo F)Acc No.[id number]:02/24/2023 Progress Note Patient:?Myriam Ag Provider:?Sendy Roper DPM :1965???Age:57 Y???Sex:Female D ate:02/24/2023 Address:[address] [place] [address], [facility] Pcp:Phil Paulino MD Subjective: * Chief Complaints: [...] postop pain meds were deferred.? * Procedure Codes:?87757 REMOV AL OF NAIL BED * Preventive [...] Roper DPM Date:? Generated for Nain robles/Elissa/Nimesh on:?08/24/2024 04:12 [...]
== END 2024-08-24 15:55 | disposition home or self-care (01) ==
LOC: HO.MAMMO 15:54
PROVIDERS: PCP Internal Medicine; Referring Provider Internal Medicine; Visit Provider Internal Medicine
DX: Z12.31 Encounter for screening mammogram for malignant neoplasm of breast (principal)
CPT/HCPCS: 77063; 77067

== ENCOUNTER → 2024-08-24 16:15 | Outpatient (BNV) | payer BC, SELFPAY | PROVIDERS: PCP Internal Medicine; Referring Provider Internal Medicine; Visit Provider Internal Medicine | DX: Z12.31 Encounter for screening mammogram for malignant neoplasm of breast (principal) | CPT/HCPCS: 77063; 77067 ==